=== PATIENT | female | born 1965 | race Caucasian/White ===

== ENCOUNTER 2018-03-19 22:41 | Inpatient (IN) | payer MEDICARE, MEDICAID ==
[~2018-03-19] VITALS: Ht 162.6 cm; Wt 59.3 kg
[2018-03-19 08:52] VITALS: BP 80/52; PULSE 72; RESP 17; TEMP 98.2; O2SAT 99
[~2018-03-19 22:41] MED LIST: DIAZ10TA PO; LISI-357 PO; LYRI50CA2 PO; MORP1INJ45 PO; MORP20SO2 PO; PROM1SUP12 PR
[2018-03-19 23:37] VITALS: BP 96/56; PULSE 60; RESP 16; TEMP 98.1; O2SAT 96
[2018-03-19] MEDS ORDERED: ONDANSETRON ODT 4 MG TAB PO ONE (23:45)
[2018-03-19] MEDS ORDERED: SODIUM CHLOR 0.9% 1000 ML INJ 1,000 ML IV ONE (23:45)
--- NOTE | 2018-03-20 00:07 | PD ---
HPI Chief Complaint: Psychiatric Symptoms Time Seen by Provider: 23:01 Travel History International Travel<30 days: No Contact w/Intl Traveler<30days: No Traveled to known affect area: No History of Present Illness HPI The patient is a 52 year old female who presents to the [facility] emergency department with a history of being brought in under a Ngo act to this facility. According to the Ngo act, the patient was unable to care for herself, therefore she was placed under a Ngo act. According to the nurse that accepted the report from the transport team, the patient was discharged from [facility] earlier today. I am informed that the patient has a history of HIV. She reports that she was diagnosed in 1996. She cannot recall if she has been on retroviral medications in the past. According to the transport team, the patient refused any further treatment at [facility]. The patient reports to me that she has intermittent nausea vomiting. She reports having chronic diarrhea 2 times per day over the last year. She denies having any known blood in her stool or black or tarry stools. The patient is drowsy on examination and unfortunately has difficulty staying awake to answer questions. The patient is a poor historian on exam and intermittently is cursing at me. On review of systems otherwise she does report having intermittent dry cough. She denies having any neck pain, chest pain, shortness of breath, vomiting, diarrhea, urinary symptoms, or neurologic symptoms. [facility] Past Medical History Narrative Medical The patient's past medical history is obtained from reviewing the electronic medical record as the patient is uncooperative with providing her history. The patient has a history of HIV reportedly since 1996, history of cerebrovascular accident, myocardial infarction, COPD. COPD: Yes Cerebrovascular Accident: Yes Diminished Hearing: No Diverticulitis: Yes Immune Disorder: Yes (HIV POSITIVE) Respiratory: Yes Myocardial Infarction: Yes ?: Not Menopausal: Yes Ectopic : Yes (RUPTURED) Past Surgical History Narrative Surgical The patient's past surgical history is significant for breast augmentation, liposuction, bronchoscopy with polyp removal, partial colon resection for diverticulitis, appendectomy, hysterectomy. Abdominal Surgery: Yes (COLON RESECTION/DIVERTICULITIS) Appendectomy: Yes Hysterectomy: Yes Other Surgery: Yes (BREAST AUGMENTATION, LIPOSUCTION, BRONCHOSCOPY/POLYPS REMOVED) Social History Alcohol Use: Yes Tobacco Use: Yes (2-2.5 PPD) Substance Use: No Allergies-Medications (Allergen,Severity, Reaction): Coded Allergies: penicillin G (Unverified Allergy, Severe, 06/13/17) Reported Meds & Prescriptions Reported Meds & Active Scripts Active Reported Lisinopril 5 mg (Lisinopril) 5 Mg Tab 1 Tab PO DAILY Lyrica (Pregabalin) 50 Mg Cap 50 Mg PO DAILY Diazepam 10 mg (Diazepam) 10 Mg Tab 1 Tab PO TID Morphine Sulfate 20 Mg/Ml Riri 20 Mg PO TID Morphine Sulfate Er (Morphine Sulfate) 15 Mg Tab 15 Mg PO TID Phenergan 25 mg supp (Promethazine HCl) 25 Mg Sup 25 Mg RI Q6HPRN FOR NAUSEA/VOMITING Review of Systems Except as stated in HPI: all other systems reviewed are Neg General / Constitutional: No: Fever Eyes: No: Visual changes HENT: No: Headaches Cardiovascular: No: Chest Pain or Discomfort Respiratory: Positive: Cough, No: Shortness of Breath Gastrointestinal: Positive: Nausea, Vomiting, Diarrhea, Indigestion, No: Abdominal Pain, Hematemesis, Hematochezia, Changes in Bowel Habits, Loss of Appetite Genitourinary: No: Dysuria Musculoskeletal: No: Pain Skin: No Rash Neurologic: Positive: Weakness (Generalized weakness), Change in Mentation, No : Focal Abnormalities, Slurred Speech, Sensory Disturbance Psychiatric: No: Depression Endocrine: No: Polydipsia Hematologic/Lymphatic: No: Easy Bruising Physical Exam Narrative General: The patient is a well-developed well-nourished female, drowsy on examination, frequently falling asleep. Head and Neck exam: Head is normocephalic atraumatic. Eyes: EOMI, pupils are equal round and reactive to light. Nose: Midline septum with pink mucous membranes Mouth: Dentition unremarkable. Dry mucous membranes. Posterior oropharynx mildly erythematous with thrush present the posterior oropharynx and cheeks. No tonsillar hypertrophy. Uvula midline. Airway patent. Neck: No palpable lymphadenopathy. No nuchal rigidity. No thyromegaly. Cardiovascular: Regular rate and rhythm without murmurs, gallops, or rubs. No pulse deficit to the extremities on simultaneous auscultation and palpation of her radial artery. Lungs: Clear to auscultation bilaterally. No wheezes, rhonchi, or rales. Abdomen: Soft, with reported tenderness on palpation of the midepigastric area, no other tenderness on palpation of the other quadrants of the abdomen. No guarding, rebound, or rigidity. Normal bowel sounds are audible. No tenderness on palpation of McBurney's point. Negative Abebe sign. Extremities: No clubbing, cyanosis, or edema. 2+ pulses in all 4 extremities. No calf tenderness on palpation. Back: No spinous process tenderness to palpation. No costovertebral angle tenderness to palpation. Neurologic Exam: Grossly nonfocal. Drowsy on examination. She reports that she did take Valium earlier today. She reports that she last drank 2 shots of Tequila 2 days ago. Patient frequently falls asleep during examination. The patient has no focal findings on examination with strength that is 5/5 in all 4 extremities, intact sensation over all dermatomes. No evidence of facial asymmetry. Skin Exam: No rash noted. Intact skin that is warm and dry. Data Data Last Documented VS Vital Signs Date Time Temp Pulse Resp B/P (MAP) Pulse Ox O2 Delivery O2 Flow Rate FiO2 03/19/18 23:37 98.1 60 16 96/56 (69) 96 Room Air Orders Orders Electrocardiogram (03/19/18 23:37) Complete Blood Count With Diff (03/19/18 23:37) Comprehensive Metabolic Panel (03/19/18 23:37) Creatine Kinase (Cpk) (03/19/18 23:37) Ckmb (Isoenzyme) Profile (03/19/18 23:37) Troponin I (03/19/18 23:37) B-Type Natriuretic Peptide (03/19/18 23:37) Prothrombin Time / Inr (Pt) (03/19/18 23:37) Act Partial Throm Time (Ptt) (03/19/18 23:37) Blood Culture (03/19/18 23:37) C-Reactive Protein (Crp) (03/19/18 23:37) Lipase (03/19/18 23:37) Urinalysis - C+S If Indicated (03/19/18 23:37) Magnesium (Mg) (03/19/18 23:37) Chest, Single Ap (03/19/18 23:37) Iv Access Insert/Monitor (03/19/18 23:37) Ecg Monitoring (03/19/18 23:37) Oximetry (03/19/18 23:37) Ed Urine Pregnancytest Poc (03/19/18 23:37) Lactic Acid Sepsis Protocol (03/19/18 23:37) Sodium Chlor 0.9% 1000 Ml Inj (Ns 1000 M (03/19/18 23:45) Ondansetron Odt (Zofran Odt) (03/19/18 23:45) Magnesium Sulfate 1 Gm Premix (Magnesium (03/20/18 00:15) CKMB (03/20/18 00:05) CKMB% (03/20/18 00:05) Sodium Chlorid 0.9% 500 Ml Inj (Ns 500 M (03/20/18 01:15) Nystatin Liq (Mycostatin Liq) (03/20/18 01:15) Levofloxacin 500 Mg Premix Inj (Levaquin (03/20/18 01:15) Admit To Inpatient (03/20/18 ) Vital Signs (Adult) Q4H (03/20/18 01:25) Activity Oob With Assistance (03/20/18 01:25) Superintendent Overhead Distribution / Telemetry .CONTINUOUS (03/20/18 01:25) Diet Heart Healthy (03/20/18 Breakfast) Sodium Chlor 0.9% 1000 Ml Inj (Ns 1000 M (03/20/18 01:25) Sodium Chloride 0.9% Flush (Ns Flush) (03/20/18 01:30) Sodium Chloride 0.9% Flush (Ns Flush) (03/20/18 09:00) Acetaminophen (Tylenol) (03/20/18 01:30) Basic Metabolic Panel (Bmp) (03/21/18 06:00) Complete Blood Count With Diff (03/21/18 06:00) Resp Oxygen Brian C Titrat 1-4 L (03/20/18 ) Enoxaparin Inj (Lovenox Inj) (03/20/18 09:00) Naloxone Inj (Narcan Inj) (03/20/18 01:30) Magnesium Hydroxide Liq (Milk Of Magnesi (03/20/18 01:30) Sennosides (Senokot) (03/20/18 01:30) Bisacodyl Supp (Dulcolax Supp) (03/20/18 01:30) Lactulose Liq (Lactulose Liq) (03/20/18 01:30) Inpatient Certification (03/20/18 ) Sodium Polysty Sulfate Liq (Kayexalate L (03/20/18 02:00) Insulin Human Regular Inj (Novolin R Inj (03/20/18 01:30) Dextrose 50% In Fly (Vial) Inj (D50w (Vi (03/20/18 01:30) Albuterol Concentrated Neb (Albuterol Co (03/20/18 01:30) Consult Psychiatry (03/20/18 ) Ondansetron Odt (Zofran Odt) (03/20/18 01:45) Labs Laboratory Tests Test 03/20/18 00:05 03/20/18 01:10 White Blood Count 9.7 TH/MM3 Red Blood Count 4.91 MIL/MM3 Hemoglobin 12.8 GM/DL Hematocrit 39.1 % Mean Corpuscular Volume 79.6 FL Mean Corpuscular Hemoglobin 26.1 PG Mean Corpuscular Hemoglobin Concent 32.8 % Red Cell Distribution Width 17.4 % Platelet Count 130 TH/MM3 Mean Platelet Volume 8.8 FL Neutrophils (%) (Auto) 65.4 % Lymphocytes (%) (Auto) 30.5 % Monocytes (%) (Auto) 3.8 % Eosinophils (%) (Auto) 0.0 % Basophils (%) (Auto) 0.3 % Neutrophils # (Auto) 6.3 TH/MM3 Lymphocytes # (Auto) 3.0 TH/MM3 Monocytes # (Auto) 0.4 TH/MM3 Eosinophils # (Auto) 0.0 TH/MM3 Basophils # (Auto) 0.0 TH/MM3 CBC Comment DIFF FINAL Differential Comment Blood Urea Nitrogen 41 MG/DL Creatinine 2.11 MG/DL Random Glucose 103 MG/DL Total Protein 7.7 GM/DL Albumin 2.4 GM/DL Calcium Level 8.1 MG/DL Magnesium Level 1.9 MG/DL Alkaline Phosphatase 134 U/L Aspartate Amino Transf (AST/SGOT) 133 U/L Alanine Aminotransferase (ALT/SGPT) 61 U/L Total Bilirubin 0.5 MG/DL Sodium Level 139 MEQ/L Potassium Level 5.4 MEQ/L Chloride Level 110 MEQ/L Carbon Dioxide Level 17.3 MEQ/L Anion Gap 12 MEQ/L Estimat Glomerular Filtration Rate 25 ML/MIN Lactic Acid Level 1.9 mmol/L Total Creatine Kinase 546 U/L Creatine Kinase MB 3.3 NG/ML Creatine Kinase MB % 0.6 % Troponin I 0.36 NG/ML C-Reactive Protein 7.90 MG/DL B-Type Natriuretic Peptide 207 PG/ML Lipase 99 U/L Prothrombin Time 10.6 SEC Prothromb Time International Ratio 1.0 RATIO Activated Partial Thromboplast Time 21.0 SEC MDM Medical Decision Making Medical Screen Exam Complete: Yes Emergency Medical Condition: Yes Medical Record Reviewed: Yes Differential Diagnosis Intracranial abnormality, versus encephalopathy, versus urinary tract infection , versus alcohol intoxication, versus other substance intoxication Narrative Course During the course of the patient's emergency department visit, the patient's history, examination, and differential diagnosis were reviewed with the patient. The patient was placed on a acetylene torch operator with oximetry and frequent blood pressure monitoring. The patient had IV access obtained and blood work sent for analysis. The patient had an EKG done on arrival. Patient's EKG shows a sinus rhythm with a heart rate of 62, QRS duration is 82 ms, QTC is prolonged at 571 ms. EKG is noted to have nonspecific ST segment deviation, T-wave inversions in leads II, 3, aVF, V2, V3, V4, V5, V6. Due to the QTC prolongation , the patient was started on magnesium 1 g IV. The patient's Ngo act was reviewed. The patient was initially provided normal saline IV fluids. The patient was given nystatin for thrush. The patient's laboratory studies were reviewed and remarkable for a white count of 9.7, hemoglobin 12.8, platelets 130 with a normal differential, CMP is remarkable for potassium of 5.4, CO2 17.3, BUN 41, creatinine 2.11 which is compared to her prior BUN and creatinine in April 2016 at 15 and 1.05 respectively. AST 133, ALT 61, alk phos 134, CPK is elevated at 546, however she has a normal MB percent, C-reactive protein is 0.36, C-reactive protein 7.90 , BNP 207, albumin 2.4. The patient's elevated troponin level could be related to her renal insufficiency, as the patient denies having any chest pain. The patient was given aspirin 324 mg p.o. 1. PT 10.6, PTT 21, urinalysis shows 30 protein moderate occult blood trace leukocyte esterase 5 RBCs, catheterized specimen, culture not indicated. Acetaminophen is less than 2, alcohol level less than 3, salicylate 3.3 Radiology studies were reviewed and remarkable for Last Impressions Chest X-Ray 03/19/18 1526 Signed Impressions: Service Date/Time: Tuesday, March 20, 2018 00:31 - CONCLUSION: No acute disease. There is no evidence of pneumonia. Feliberto Spears MD CT scan of the brain shows no acute abnormality. Given the patient's cough, congestion, the patient was given Levaquin 500 mg IV 1. The patient will be admitted to the hospitalist service for altered mentation with a psychiatric consultation related to her Ngo act. The patient's results were discussed with the patient, including the plan of care. I explained that further testing and/ or monitoring is indicated based on the patient's history, examination, and/ or laboratory findings. Therefore, I recommended admission for additional evaluation. The patient expressed understanding and was agreeable with this plan. The patient was admitted to the hospital in guarded condition and sent to a bed under the care of the [place] [facility] service. Physician Communication Physician Communication The patient's case including history, pertinent physical examination findings, and laboratory studies were discussed with Dr. Zuniga. It was agreed that the patient would be admitted to the [place] [facility] service. Diagnosis Primary Impression: Altered mental status Qualified Codes: R41.0 - Disorientation, unspecified Admitting Information Admitting Physician Requests: Admit Michelle Cui MD March 20, 2018 00:07
[2018-03-20] MEDS ORDERED: MAGNESIUM SULFATE 1 GM PREMIX 100 ML IV ONE (00:15)
[2018-03-20 00:21] LABS: AUTOMATED NEUTROPHIL # 6.3 TH/MM3 (1.8-7.7); BASOPHIL % 0.3 % (0.0-2.0); HEMATOCRIT 39.1 % (35.0-46.0); HEMOGLOBIN 12.8 GM/DL (11.6-15.3); LYMPH % 30.5 % (9.0-44.0); MEAN CELL VOLUME 79.6 FL (80.0-100.0); MEAN CORPUSCULAR HEMOGLOBIN 26.1 PG (27.0-34.0); MEAN CORPUSCULAR HGB CONC 32.8 % (32.0-36.0); MEAN PLATELET VOLUME 8.8 FL (7.0-11.0); MONO % 3.8 % (0.0-8.0); MONOCYTE # 0.4 TH/MM3 (0-0.9); NEUT % 65.4 % (16.0-70.0); PLATELET COUNT 130 TH/MM3 (150-450); RED BLOOD COUNT 4.91 MIL/MM3 (4.00-5.30); RED CELL DISTRIBUTION WIDTH 17.4 % (11.6-17.2); WHITE BLOOD COUNT 9.7 TH/MM3 (4.0-11.0)
--- NOTE | 2018-03-20 00:43 | RADRPT ---
EXAM DATE/TIME: 03/20/2018 00:31 [place] COMPARISON: CHEST SINGLE AP, May 06, 2016, 19:17. INDICATIONS : Cough. AMS. MEDICAL HISTORY : None. SURGICAL HISTORY : None. ENCOUNTER: Initial ACUITY: 1 day PAIN SCORE: Non-responsive. LOCATION: Bilateral chest FINDINGS: A single view of the chest demonstrates the lungs to be symmetrically aerated without evidence of mas s, infiltrate or effusion. The cardiomediastinal contours are unremarkable. Osseous structures are intact. CONCLUSION: No acute disease. There is no evidence of pneumonia. Feliberto Spears MD on March 20, 2018 at 0:42 Board Certified Radiologist. This report was verified electronically.
[2018-03-20 00:47] LABS: ALT (GPT) 61 U/L (10-53)
[2018-03-20 00:49] LABS: ALBUMIN 2.4 GM/DL (3.4-5.0); AST (GOT) 133 U/L (15-37); BICARBONATE 17.3 MEQ/L (21.0-32.0); BLOOD UREA NITROGEN 41 MG/DL (7-18); CALCIUM 8.1 MG/DL (8.5-10.1); CHLORIDE 110 MEQ/L (98-107); CREATININE 2.11 MG/DL (0.50-1.00); GLOMERULAR FILTRATION RATE 25 ML/MIN (>89); GLUCOSE,RANDOM 103 MG/DL (74-106); MAGNESIUM 1.9 MG/DL (1.5-2.5); SODIUM (NA) 139 MEQ/L (136-145)
[2018-03-20 00:50] LABS: ALKALINE PHOSPHATASE 134 U/L (45-117); TOTAL BILIRUBIN ADULT 0.5 MG/DL (0.2-1.0); TOTAL PROTEIN 7.7 GM/DL (6.4-8.2); TROPONIN I 0.36 NG/ML (0.02-0.05)
[2018-03-20] MEDS ORDERED: NYSTATIN SUSP 500,000 U/5 ML CUP SWISH-SWAL ONE (01:15)
[2018-03-20] MEDS ORDERED: LEVOFLOXACIN 500 MG PREMIX INJ 100 ML IV ONE (01:15)
[2018-03-20] MEDS ORDERED: SODIUM CHLORID 0.9% 500 ML INJ 500 ML IV ONE (01:15)
[2018-03-20] MEDS ORDERED: RESP: ALBUTEROL CONC 2.5 MG/0.5 ML NEB INH ONE (01:30)
[2018-03-20] MEDS ORDERED: MAGNESIUM HYDROXIDE SUSP 30 ML CUP PO PRN (01:30)
[2018-03-20] MEDS ORDERED: SENNOSIDES 8.6 MG TAB PO PRN (01:30)
[2018-03-20] MEDS ORDERED: BISACODYL 10 MG SUPP RECTAL PRN (01:30)
[2018-03-20] MEDS ORDERED: DEXTROSE 50% IN WATER 50 ML VIAL(D50) IV PUSH ONE (01:30)
[2018-03-20] MEDS ORDERED: NALOXONE HCL 0.4 MG/ML AMP IV PUSH PRN (01:30)
[2018-03-20] MEDS ORDERED: ACETAMINOPHEN 325 MG TAB PO PRN (01:30)
[2018-03-20] MEDS ORDERED: LACTULOSE SYRUP 20 GM/30 ML CUP PO PRN (01:30)
[2018-03-20] MEDS ORDERED: SODIUM CHLORIDE 0.9% FLUSH 10 ML FLUSH IV FLUSH PRN (01:30)
[2018-03-20] MEDS ORDERED: INSULIN HUMAN REGULAR 1,000 UNITS/10 ML VIAL IV PUSH ONE (01:30)
[2018-03-20 01:38] LABS: PROTHROMBIN TIME - PATIENT 10.6 SEC (9.8-11.6)
[2018-03-20] MEDS ORDERED: ONDANSETRON ODT 4 MG TAB PO PRN (01:45)
[2018-03-20] MEDS: SODIUM CHLOR 0.9% 1000 ML INJ 1,000 ML IV SCH ×2 (02:05→08:04)
[2018-03-20] MEDS: SODIUM POLYSTYRENE SULFONATE SUSP 15 GM/60 ML CUP PO SCH ×2 (02:06→08:05)
[2018-03-20] MEDS ORDERED: ASPIRIN 81 MG CHEW TAB CHEW ONE (02:15)
[2018-03-20 02:33] LABS: ACETAMINOPHEN LESS THAN 2.0 MCG/ML (10.0-30.0)
--- NOTE | 2018-03-20 02:53 | HHI.HP ---
[facility] No Primary Care Physician Admission Diagnosis AMS, Ngo Act Diagnoses: Chief Complaint: Ngo act Travel History International Travel<30 Days: No Contact w/Intl Traveler <30 Da: No Traveled to Known Affected Are: No History of Present Illness 52-year-old female with a medical history of HIV, hypertension (not on any medication) was brought to the ED under a Ngo act because patient was unable to care for herself. Upon examination patient is oriented 2-3 and is very agitated and defensive. Patient was apparently discharged from [facility] earlier today and when the slip feeder brought her to her house they realize the condition of her house and brought her into the ED due to unable to care for herself. Patient states she was admitted to [facility] last week for taking too much temazepam. Patient states at this time she was fighting with her significant other. Patient denies any suicidal ideation, patient states she does not have a plan and does not want to hurt herself. She states she does not take HIV medication because it is her right she has a choice. Patient is currently in 4 point restraints and is very agitated. She denies any chest pain, shortness breath, fever or chills. Review of Systems Except as stated in HPI: all other systems reviewed are Neg Past Family Social History Past Medical History HIV COPD Hypertension Past Surgical History Breast augmentation Colon resection Appendectomy Hysterectomy Reported Medications Reported Meds & Active Scripts Active Reported Lisinopril 5 mg (Lisinopril) 5 Mg Tab 1 Tab PO DAILY Lyrica (Pregabalin) 50 Mg Cap 50 Mg PO DAILY Diazepam 10 mg (Diazepam) 10 Mg Tab 1 Tab PO TID Morphine Sulfate 20 Mg/Ml Riri 20 Mg PO TID Morphine Sulfate Er (Morphine Sulfate) 15 Mg Tab 15 Mg PO TID Phenergan 25 mg supp (Promethazine HCl) 25 Mg Sup 25 Mg MI Q6HPRN FOR NAUSEA/VOMITING Allergies: Coded Allergies: penicillin G (Unverified Allergy, Severe, 06/13/17) Active Ordered Medications Current Medications Medications (Trade) Dose Ordered Sig/Andrey Route Start Time Stop Time Status Last Admin Sodium Chloride 1,000 ml @ 150 mls/hr Q6H40M IV 03/20/18 01:25 03/20/18 02:05 (NS Flush) 2 ml UNSCH PRN IV FLUSH 03/20/18 01:30 (NS Flush) 2 ml BID IV FLUSH 03/20/18 09:00 (Tylenol) 650 mg Q4H PRN PO 03/20/18 01:30 (Zofran Odt) 4 mg Q6H PRN PO 03/20/18 01:45 (Lovenox Inj) 30 mg Q24H SQ 03/20/18 09:00 (Narcan Inj) 0.4 mg UNSCH PRN IV PUSH 03/20/18 01:30 (Milk Of Magnesia Liq) 30 ml Q12H PRN PO 03/20/18 01:30 (Senokot) 17.2 mg Q12H PRN PO 03/20/18 01:30 (Dulcolax Supp) 10 mg DAILY PRN RECTAL 03/20/18 01:30 (Lactulose Liq) 30 ml DAILY PRN PO 03/20/18 01:30 (Kayexalate Liq) 15 gm QID PO 03/20/18 02:00 03/20/18 18:01 03/20/18 02:06 Family History Patient denies any family history no heart disease or Social History Tobacco use: 2PPD Alcohol use: Occasionally Physical Exam Vital Signs Vital Signs Date Time Temp Pulse Resp B/P (MAP) Pulse Ox O2 Delivery O2 Flow Rate FiO2 03/19/18 23:37 98.1 60 16 96/56 (69) 96 Room Air Physical Exam GENERAL: This is a well-nourished, well-developed patient, who is in restraints and agitated SKIN: No rashes, ecchymoses or lesions. Cool and dry. HEAD: Atraumatic. Normocephalic. EYES: Pupils equal round and reactive. Extraocular motions intact. CARDIOVASCULAR: Regular rate and rhythm without murmurs, gallops, or rubs. RESPIRATORY: Clear to auscultation. Breath sounds equal bilaterally. No wheezes , rales, or rhonchi. GASTROINTESTINAL: Abdomen soft, non-tender, nondistended. MUSCULOSKELETAL: Extremities without clubbing, cyanosis, or edema. No calf tenderness. NEUROLOGICAL: Awake and alert. Motor and sensory grossly within normal limits. Normal speech. Laboratory Laboratory Tests Test 03/20/18 00:05 03/20/18 01:10 03/20/18 01:40 White Blood Count 9.7 Red Blood Count 4.91 Hemoglobin 12.8 Hematocrit 39.1 Mean Corpuscular Volume 79.6 Mean Corpuscular Hemoglobin 26.1 Mean Corpuscular Hemoglobin Concent 32.8 Red Cell Distribution Width 17.4 Platelet Count 130 Mean Platelet Volume 8.8 Neutrophils (%) (Auto) 65.4 Lymphocytes (%) (Auto) 30.5 Monocytes (%) (Auto) 3.8 Eosinophils (%) (Auto) 0.0 Basophils (%) (Auto) 0.3 Neutrophils # (Auto) 6.3 Lymphocytes # (Auto) 3.0 Monocytes # (Auto) 0.4 Eosinophils # (Auto) 0.0 Basophils # (Auto) 0.0 CBC Comment DIFF FINAL Differential Comment Blood Urea Nitrogen 41 Creatinine 2.11 Random Glucose 103 Total Protein 7.7 Albumin 2.4 Calcium Level 8.1 Magnesium Level 1.9 Alkaline Phosphatase 134 Aspartate Amino Transf (AST/SGOT) 133 Alanine Aminotransferase (ALT/SGPT) 61 Total Bilirubin 0.5 Sodium Level 139 Potassium Level 5.4 Chloride Level 110 Carbon Dioxide Level 17.3 Anion Gap 12 Estimat Glomerular Filtration Rate 25 Lactic Acid Level 1.9 Total Creatine Kinase 546 Creatine Kinase MB 3.3 Creatine Kinase MB % 0.6 Troponin I 0.36 C-Reactive Protein 7.90 B-Type Natriuretic Peptide 207 Lipase 99 Prothrombin Time 10.6 Prothromb Time International Ratio 1.0 Activated Partial Thromboplast Time 21.0 Salicylates Level 3.3 Acetaminophen Level LESS THAN 2.0 Ethyl Alcohol Level LESS THAN 3 Date/Time Source Procedure Growth Status 03/20/18 00:05 Blood Peripheral Aerobic Blood Culture Pending Received 03/20/18 00:05 Blood Peripheral Anaerobic Blood Culture Pending Received Result Diagram: 03/20/18 0005 03/20/18 0005 Imaging Last Impressions Head CT 03/20/18 0130 Signed Impressions: Service Date/Time: Tuesday, March 20, 2018 02:48 - CONCLUSION: Unremarkable noncontrast head CT. Feliberto Spears MD Chest X-Ray 03/19/18 2038 Signed Impressions: Service Date/Time: Tuesday, March 20, 2018 00:31 - CONCLUSION: No acute disease. There is no evidence of pneumonia. MD Addie Avila VTE Risk Assessment Caprini VTE Risk Assessment: No/Low Risk (score <= 1) Caprini Risk Assessment Model Point Value = 1 Point Value = 2 Point Value = 3 Point Value = 5 Age 41-60 Minor surgery BMI > 25 kg/m2 Swollen legs Varicose veins or History of unexplained or recurrent spontaneous Oral contraceptives or hormone replacement Sepsis (< 1 month) Serious lung disease, including pneumonia (< 1 month) Abnormal pulmonary function Acute myocardial infarction Congestive heart failure (< 1 month) History of inflammatory bowel disease Medical patient at bed rest Age 61-74 Arthroscopic surgery Major open surgery (> 45 min) Laparoscopic surgery (> 45 min) Malignancy Confined to bed (> 72 hours) Immobilizing plaster cast Central venous access Age >= 75 History of VTE Family history of VTE Factor V Leiden Prothrombin [id number] Lupus anticoagulant Anticardiolipin antibodies Elevated serum homocysteine Heparin-induced thrombocytopenia Other congenital or acquired thrombophilia Stroke (< 1 month) Elective arthroplasty Hip, pelvis, or leg fracture Acute spinal cord injury (< 1 month) Prophylaxis Regimen Total Risk Factor Score Risk Level Prophylaxis Regimen 0-1 Low Early ambulation 2 Moderate Order ONE of the following: *Sequential Compression Device (SCD) *Heparin 5000 units SQ BID 3-4 Higher Order ONE of the following medications: *Heparin 5000 units SQ TID *Enoxaparin/Lovenox 40 mg SQ daily (WT < 150 kg, CrCl > 30 mL/min) *Enoxaparin/Lovenox 30 mg SQ daily (WT < 150 kg, CrCl > 10-29 mL/min) *Enoxaparin/Lovenox 30 mg SQ BID (WT < 150 kg, CrCl > 30 mL/min) AND/OR *Sequential Compression Device (SCD) 5 or more Highest Order ONE of the following medications: *Heparin 5000 units SQ TID (Preferred with Epidurals) *Enoxaparin/Lovenox 40 mg SQ daily (WT < 150 kg, CrCl > 30 mL/min) *Enoxaparin/Lovenox 30 mg SQ daily (WT < 150 kg, CrCl > 10-29 mL/min) *Enoxaparin/Lovenox 30 mg SQ BID (WT < 150 kg, CrCl > 30 mL/min) AND *Sequential Compression Device (SCD) Assessment and Plan Assessment and Plan 52-year-old female with a medical history of HIV, hypertension (not on any medication) was brought to the ED under a Ngo act because patient was unable to care for herself. Failure to care for herself CT brain reviewed and is unremarkable -Consult case management for recommendations -Consult psychiatry recommendations -Patient under a ngo act Thrush, acute -Nystatin swish and swallow 4 times daily Hypertension, chronic, controlled -Due to patient's agitation med rec is unable to be completed, resume when completed. Hyperkalemia, potassium 5.4 EKG reviewed and shows SR -D50, calcium and insulin given -BMP in am GENEVA, creatine 2.1, baseline 1.0, likely due to dehydration -IVF for hydration, trend creatine -Renal ultrasound if no improvement -BMP at noon -Avoid nephrotoxins Elevated troponin, likely secondary to GENEVA, r/o ACS Troponin .36 -Serial troponin and EKGs -Monitor telemetry DNR: frankie Quintanilla Discussed Condition With Patient and RN Physician Certification 2 Midnight Certification Type: Admission for Inpatient Services Order for Inpatient Services The services are ordered in accordance with Medicare regulations or non- Medicare payer requirements, as applicable. In the case of services not specified as inpatient-only, they are appropriately provided as inpatient services in accordance with the 2-midnight benchmark. Estimated LOS (days): 3 days is the estimated time the patient will need to remain in the hospital, assuming treatment plan goals are met and no additional complications. Post-Hospital Plan: Not yet determined Veronika Elkins March 20, 2018 02:53
--- NOTE | 2018-03-20 03:26 | RADRPT ---
EXAM DATE/TIME: 03/20/2018 02:48 [place] COMPARISON: No previous studies available for comparison. INDICATIONS : Altered mental status. RADIATION DOSE: 56.35 CTDIvol (mGy) MEDICAL HISTORY : Cardiovascular disease. Chronic obstructive pulmonary disease. Diverticulitis.HIV SURGICAL HISTORY : Appendectomy. Hysterectomy.Colon resection. ENCOUNTER: Initial ACUITY: 1 day PAIN SCALE: 0/10 LOCATION: cranial TECHNIQUE: Multiple contiguous axial images were obtained of the head. Using automated exposure control and adj ustment of the mA and/or kV according to patient size, radiation dose was kept as low as reasonably a chievable to obtain optimal diagnostic quality images. DICOM format image data is available electro nically for review and comparison. FINDINGS: CEREBRUM: The ventricles are normal for age. No evidence of midline shift, mass lesion, hemorrhage or acute in farction. No extra-axial fluid collections are seen. POSTERIOR FOSSA: The cerebellum and brainstem are intact. The 4th ventricle is midline. The cerebellopontine angle i s unremarkable. EXTRACRANIAL: The visualized portion of the orbits is intact. SKULL: The calvaria is intact. No evidence of skull fracture. CONCLUSION: Unremarkable noncontrast head CT. Feliberto Spears MD on March 20, 2018 at 3:25 Board Certified Radiologist. This report was verified electronically.
[2018-03-20 04:00] VITALS: BP 73/43; PULSE 76; RESP 18; TEMP 97.8; O2SAT 97
[2018-03-20 05:30] VITALS: BP 90/49; O2SAT 98
[2018-03-20] MEDS ORDERED: NYSTATIN SUSP 500,000 U/5 ML CUP SWISH-SWAL SCH (09:00)
[2018-03-20] MEDS ORDERED: SODIUM CHLORIDE 0.9% FLUSH 10 ML FLUSH IV FLUSH SCH (09:00)
[2018-03-20] MEDS ORDERED: ENOXAPARIN SODIUM 30 MG/0.3 ML SYRINGE SQ SCH (09:00)
[2018-03-20 12:00] VITALS: BP 101/42; PULSE 70; RESP 18; TEMP 97.3; O2SAT 99
--- NOTE | 2018-03-20 12:12 | HHI.PR ---
Subjective Remarks Follow-up for Ngo act, GENEVA, HIV, elevated troponin. Patient was seen by psychiatry earlier this morning, Jeni vo was lifted. Patient does not want to stay in the hospital. Had a long discussion with patient regarding her diagnosis of GENEVA, elevated troponin, hyperkalemia. She is AAO 4. She states nothing against the hospital, but her time has come and she is done fighting. She denies any specific suicidal ideations. She states she just wants to go home and does not want to be in the hospital. Informed her of her risks of further dehydration, arrhythmia, and , patient still chooses to go home. She has capacity to make her own medical decisions. Objective Vitals Vital Signs Date Time Temp Pulse Resp B/P (MAP) Pulse Ox O2 Delivery O2 Flow Rate FiO2 03/20/18 05:30 90/49 (63) 98 03/20/18 04:00 97.8 76 18 73/43 (53) 97 03/20/18 03:24 03/19/18 23:37 98.1 60 16 96/56 (69) 96 Room Air I/O 03/19/18 03/19/18 03/19/18 03/20/18 03/20/18 03/20/18 06:59 14:59 22:59 06:59 14:59 22:59 Intake Total 1940 ml Balance 1940 ml Intake Oral 240 ml IV Total 1700 ml # Voids 0 Result Diagram: 03/20/18 0005 03/20/18 0005 Imaging Last Impressions Head CT 03/20/18 0130 Signed Impressions: Service Date/Time: Tuesday, March 20, 2018 02:48 - CONCLUSION: Unremarkable noncontrast head CT. Feliberto Spears MD Chest X-Ray 03/19/18 7848 Signed Impressions: Service Date/Time: Tuesday, March 20, 2018 00:31 - CONCLUSION: No acute disease. There is no evidence of pneumonia. Feliberto Spears MD Objective Remarks GENERAL: Thin female patient in NAD. Sitting in bedside chair, dressed, waiting to leave the hospital. SKIN: Warm and dry. No rash. HEENT: Normocephalic. Atraumatic. Pupils equal and round. Mucous membranes pink and moist. NECK: Supple. Trachea midline. CARDIOVASCULAR: Regular rate and rhythm. No murmur appreciated. RESPIRATORY: No accessory muscle use. Clear to auscultation. Breath sounds equal bilaterally. GASTROINTESTINAL: Abdomen soft, non-tender, nondistended. Normoactive bowel sounds x4. MUSCULOSKELETAL: No obvious deformities. Extremities without clubbing, cyanosis , or edema. NEUROLOGICAL: Awake and alert. No obvious cranial nerve deficits. Motor grossly within normal limits. Moving all extremities spontaneously. Normal speech. PSYCHIATRIC: Appropriate mood and affect; insight and judgment normal. Medications and IVs Current Medications Medications (Trade) Dose Ordered Sig/Andrey Route Start Time Stop Time Status Last Admin Sodium Chloride 1,000 ml @ 150 mls/hr Q6H40M IV 03/20/18 01:25 03/20/18 08:04 (NS Flush) 2 ml UNSCH PRN IV FLUSH 03/20/18 01:30 (NS Flush) 2 ml BID IV FLUSH 03/20/18 09:00 (Tylenol) 650 mg Q4H PRN PO 03/20/18 01:30 (Zofran Odt) 4 mg Q6H PRN PO 03/20/18 01:45 (Lovenox Inj) 30 mg Q24H SQ 03/20/18 09:00 03/20/18 08:08 (Narcan Inj) 0.4 mg UNSCH PRN IV PUSH 03/20/18 01:30 (Milk Of Magnesia Liq) 30 ml Q12H PRN PO 03/20/18 01:30 (Senokot) 17.2 mg Q12H PRN PO 03/20/18 01:30 (Dulcolax Supp) 10 mg DAILY PRN RECTAL 03/20/18 01:30 (Lactulose Liq) 30 ml DAILY PRN PO 03/20/18 01:30 (Kayexalate Liq) 15 gm QID PO 03/20/18 02:00 03/20/18 18:01 03/20/18 08:05 (Mycostatin Liq) 5 ml QID SWISH-SWAL 03/20/18 09:00 03/20/18 08:05 A/P Assessment and Plan 52-year-old female with a medical history of HIV, hypertension (not on any medication) was brought to the ED under a Ngo act because patient was unable to care for herself. Failure to care for self: Brought in under Ngo Act. -CT brain reviewed and is unremarkable -Consult case management for recommendations -Consult psychiatry, Saperion Act lifted -Patient AAOx4 and has capacity to make her own medical decisions -Patient leaving AGAINST MEDICAL ADVICE Thrush, acute -Nystatin swish and swallow 4 times daily Hypertension, chronic, controlled -Complete med rec and resume home medications Hyperkalemia, potassium 5.4 -EKG reviewed and shows NSR -D50, calcium and insulin given -BMP pending, patient refusing any further labs GENEVA, creatine 2.1, baseline 1.0, likely due to dehydration -Give IVF for hydration, trend creatine -Renal ultrasound if no improvement -BMP pending, however patient refuses -Avoid nephrotoxins Mild Rhabdomyolysis: CPK elevated at 546. Suspect dehydration. -UA and UDS ordered -give IVF -trend CPK and BMP Elevated troponin, likely secondary to rhabdo/GENEVA, r/o ACS -Troponin 0.36 --> 0.19 however CKMB % wnl -Serial troponin and EKGs -Monitor on telemetry DNR: SCDs, frankie Discharge Planning Patient leaving AGAINST MEDICAL ADVICE and refusing any further work up. This patient has the capacity to refuse care and understands the risks of leaving, including permanent disability and/or , and has had an opportunity to ask questions about her condition. The patient has been informed that she may return for care at any time, and follow up has been arranged/advised. Ledy Ruiz PA-C March 20, 2018 12:12
--- NOTE | 2018-03-20 12:20 | PD.PSY.CON ---
Provisional Diagnosis Admission Date March 20, 2018 at 01:28 History of Present Illness Service Psychiatry Consult Requested By Medical team Reason for Consult Overdose Primary Care Physician No Primary Care Physician HPI The patient is a 52-year-old woman, bilingual, domiciled alone in [place], single, unemployed, supported by [facility], with psychiatric history of depression, anxiety, alcohol use disorder, 1 previous psychiatric hospitalizations many years ago, one previous suicide attempt, the patient reports that she is in diazepam 10 mg 4 times per day prescribed by PCP, with a medical history of HIV, hypertension was brought to the ED under a Ngo act because patient was unable to care for herself. Upon examination patient is oriented 2-3 and is very agitated and defensive. Patient was apparently discharged from [facility] earlier today and when the kicking machine operator brought her to her house they realize the condition of her house and brought her into the ED due to unable to care for herself. Patient states she was admitted to [facility] last week for taking too much temazepam. Patient states at this time she was fighting with her significant other. Patient denies any suicidal ideation, patient states she does not have a plan and does not want to hurt herself. She states she does not take HIV medication because it is her right she has a choice. Patient is currently in 4 point restraints and is very agitated. She denies any chest pain, shortness breath, fever or chills. Patient was placed on the Ngo act for suspected overdose. Consulted to psychiatry to address a potential overdose. On psychiatric evaluation the patient is calm, cooperative at the beginning she was irritable oppositional. Patient asked why was she consulted to psychiatry and Jeni acted "if I am the happiest person in this world, a Mandaeism person and I was never will kill myself". She reports that she had an argument with her girlfriend by phone, she took her prescribed diazepam, she usually takes 10 mg, "but due to the argument I took 20 minute and then I drank some alcohol with the intention to go to sleep". Patient denies suicidal intentions. At this moment the patient is very irritable, verbally oppositional, but she is insists that she is happy, denies depressive symptoms, denies hopelessness, denies hopelessness, denies worthlessness, she denies suicidal enemas ideation, she denies visual and auditory hallucinations. She is logical, coherent and relevant. Oriented 3. No fluctuation of consciousness, no gross cognitive impairment is present. Patient reports occasional use of alcohol. Denies the use of illegal drugs. Review of Systems Constitutional: DENIES: Diaphoretic episodes, Fatigue, Fever, Weight gain, Weight loss, Chills, Dizziness, Change in appetite, Night Sweats Endocrine: DENIES: Abnorml menstrual pattern, Heat/cold intolerance, Polydipsia , Polyuria, Polyphagia Eyes: DENIES: Blurred vision, Diplopia, Eye inflammation, Eye pain, Vision loss , Photosensitivity, Double Vision Ears, nose, mouth, throat: DENIES: Tinnitus, Hearing loss, Vertigo, Nasal discharge, Oral lesions, Throat pain, Hoarseness, Ear Pain, Running Nose, Epistaxis, Sinus Pain, Toothache, Odynophagia Respiratory: DENIES: Apneas, Cough, Snoring, Wheezing, Hemoptysis, Sputum production, Shortness of breath Cardiovascular: DENIES: Chest pain, Palpitations, Syncope, Dyspnea on Exertion , PND, Lower Extremity Edema, Orthopnea, Claudication Gastrointestinal: DENIES: Abdominal pain, Black stools, Bloody stools, Constipation, Diarrhea, Nausea, Vomiting, Difficulty Swallowing, Anorexia Genitourinary: DENIES: Abnormal vaginal bleeding, Dysmenorrhea, Dyspareunia, Sexual dysfunction, Urinary frequency, Urinary incontinence, Urgency, Hematuria , Dysuria, Nocturia, Vaginal discharge Musculoskeletal: DENIES: Joint pain, Muscle aches, Stiffness, Joint Swelling, Back pain, Neck pain Integumentary: DENIES: Abnormal pigmentation, Pruritus, Rash, Nail changes, Breast masses, Breast skin changes, Nipple discharge Hematologic/lymphatic: DENIES: Bruising, Lymphadenopathy Immunologic/allergic: DENIES: Eczema, Urticaria Neurologic: DENIES: Abnormal gait, Headache, Localized weakness, Paresthesias, Seizures, Speech Problems, Tremor, Poor Balance Psychiatric: DENIES: Anxiety, Confusion, Mood changes, Depression, Hallucinations, Agitation, Suicidal Ideation, Homicidal Ideation, Delusions Past Family Social History Coded Allergies: penicillin G (Unverified Allergy, Severe, 06/13/17) Reported Medications Lisinopril 5 mg (Lisinopril 5 mg) 5 Mg Tab, 1 TAB PO DAILY, TAB 05/06/16 Pregabalin (Lyrica) 50 Mg Cap, 50 MG PO DAILY, CAP 05/06/16 Diazepam 10 mg (Diazepam 10 mg) 10 Mg Tab, 1 TAB PO TID for Anxiety, TAB 05/06/16 Morphine Sulfate (Morphine Sulfate) 20 Mg/Ml Delgado, 20 MG PO TID for Pain, DELGADO 05/06/16 Morphine Sulfate-Sodium Chlori (Morphine Sulfate/Sodium C 50-0.9 mg/50Ml-%) 15 Mg Tab, 15 MG PO TID, TAB 05/06/16 Promethazine 25 mg supp (Phenergan 25 mg supp) 25 Mg Sup, 25 MG NC Q6HPRN, #5 FOR NAUSEA/VOMITING 01/14/10 Current Medications Medications (Trade) Dose Ordered Sig/Andrey Route Start Time Stop Time Status Last Admin Sodium Chloride 1,000 ml @ 150 mls/hr Q6H40M IV 03/20/18 01:25 03/20/18 08:04 (NS Flush) 2 ml UNSCH PRN IV FLUSH 03/20/18 01:30 (NS Flush) 2 ml BID IV FLUSH 03/20/18 09:00 (Tylenol) 650 mg Q4H PRN PO 03/20/18 01:30 (Zofran Odt) 4 mg Q6H PRN PO 03/20/18 01:45 (Lovenox Inj) 30 mg Q24H SQ 03/20/18 09:00 03/20/18 08:08 (Narcan Inj) 0.4 mg UNSCH PRN IV PUSH 03/20/18 01:30 (Milk Of Magnesia Liq) 30 ml Q12H PRN PO 03/20/18 01:30 (Senokot) 17.2 mg Q12H PRN PO 03/20/18 01:30 (Dulcolax Supp) 10 mg DAILY PRN RECTAL 03/20/18 01:30 (Lactulose Liq) 30 ml DAILY PRN PO 03/20/18 01:30 (Kayexalate Liq) 15 gm QID PO 03/20/18 02:00 03/20/18 18:01 03/20/18 08:05 (Mycostatin Liq) 5 ml QID SWISH-SWAL 03/20/18 09:00 03/20/18 08:05 Family Psych History No family psychiatric Social History Patient was born and raised in [place], she lives in [facility], she has a girlfriend, she has 2 kids, her lutheran is Aida, her highest level of education is some college Patient's Strengths (min. 2) Verbal communication Physical Exam No tremors, no EPS, no withdrawal symptoms, no psychomotor agitation or retardation, no gait disturbance Vital Signs Vital Signs Date Time Temp Pulse Resp B/P (MAP) Pulse Ox O2 Delivery O2 Flow Rate FiO2 03/20/18 05:30 90/49 (63) 98 03/20/18 04:00 97.8 76 18 03/19/18 23:37 Room Air I/O 03/20/18 03/20/18 03/21/18 08:00 16:00 00:00 Intake Total 1940 ml Balance 1940 ml Lab Results Test 03/20/18 00:05 03/20/18 01:10 03/20/18 01:40 03/20/18 08:24 White Blood Count 9.7 TH/MM3 Red Blood Count 4.91 MIL/MM3 Hemoglobin 12.8 GM/DL Hematocrit 39.1 % Mean Corpuscular Volume 79.6 FL Mean Corpuscular Hemoglobin 26.1 PG Mean Corpuscular Hemoglobin Concent 32.8 % Red Cell Distribution Width 17.4 % Platelet Count 130 TH/MM3 Mean Platelet Volume 8.8 FL Neutrophils (%) (Auto) 65.4 % Lymphocytes (%) (Auto) 30.5 % Monocytes (%) (Auto) 3.8 % Eosinophils (%) (Auto) 0.0 % Basophils (%) (Auto) 0.3 % Neutrophils # (Auto) 6.3 TH/MM3 Lymphocytes # (Auto) 3.0 TH/MM3 Monocytes # (Auto) 0.4 TH/MM3 Eosinophils # (Auto) 0.0 TH/MM3 Basophils # (Auto) 0.0 TH/MM3 CBC Comment DIFF FINAL Differential Comment Blood Urea Nitrogen 41 MG/DL Creatinine 2.11 MG/DL Random Glucose 103 MG/DL Total Protein 7.7 GM/DL Albumin 2.4 GM/DL Calcium Level 8.1 MG/DL Magnesium Level 1.9 MG/DL Alkaline Phosphatase 134 U/L Aspartate Amino Transf (AST/SGOT) 133 U/L Alanine Aminotransferase (ALT/SGPT) 61 U/L Total Bilirubin 0.5 MG/DL Sodium Level 139 MEQ/L Potassium Level 5.4 MEQ/L Chloride Level 110 MEQ/L Carbon Dioxide Level 17.3 MEQ/L Anion Gap 12 MEQ/L Estimat Glomerular Filtration Rate 25 ML/MIN Lactic Acid Level 1.9 mmol/L Total Creatine Kinase 546 U/L Creatine Kinase MB 3.3 NG/ML Creatine Kinase MB % 0.6 % Troponin I 0.36 NG/ML 0.19 NG/ML C-Reactive Protein 7.90 MG/DL B-Type Natriuretic Peptide 207 PG/ML Lipase 99 U/L Prothrombin Time 10.6 SEC Prothromb Time International Ratio 1.0 RATIO Activated Partial Thromboplast Time 21.0 SEC Salicylates Level 3.3 MG/DL Acetaminophen Level LESS THAN 2.0 MCG/ML Ethyl Alcohol Level LESS THAN 3 MG/DL Date/Time Source Procedure Growth Status 03/20/18 00:05 Blood Peripheral Aerobic Blood Culture Pending Received 03/20/18 00:05 Blood Peripheral Anaerobic Blood Culture Pending Received Mental Status Examination Appearance: Appropriate Consciousness: Alert Orientation: x4 Motor Activity: Normal gait Speech: Unremarkable Language: Adequate Fund of Knowledge: Adequate Attention and Concentration: Adequate Memory: Unremarkable Mood: Appropriate Affect: Appropriate Thought Process & Associations: Intact Thought Content: Appropriate Hallucination Type: None Delusion Type: None Suicidal Ideation: No Suicidal Plan: No Suicidal Intention: No Homicidal Ideation: No Homicidal Plan: No Homicidal Intention: No Insight: Adequate Judgment: Adequate Assessment & Plan Problem List: (1) Adjustment disorder with depressed mood ICD Codes: F43.21 - Adjustment disorder with depressed mood Assessment & Plan: On psychiatric evaluation today the patient does not present any acute, concerning or significant symptomatology of depression, anxiety, tata or psychosis. The patient denies suicidal and homicidal ideation. The patient denies visual and auditory hallucinations. She does present with some irritability, opposition, resistant to the psychiatric interview, but she was redirectable. The patient denies that recent overdose with benzodiazepines and alcohol was with suicidal intentions. It seems to me that this recent overdose was the result of maladaptive and excessive use of alcohol and benzodiazepines, but the patient seems to be in precontemplation and have a very poor insight of this behavior. She does not meet criteria for involuntary psychiatric admission. 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 Brief supportive psychotherapy provided. Continue CIWA. Patient has full decision-making capacity to participate in treatment and discharge plan. Consult appreciated. Assessment & Plan Estimated LOS: days Zay Carrasco MD March 20, 2018 12:20
--- NOTE | 2018-03-20 16:43 | EKG ---
Date Performed: 03/20/2018 Time Performed: 00:01:04 PTAGE: 52 years EKG: Sinus rhythm ST DEVIATION AND MARKED T-WAVE ABNORMALITY, CONSIDER ANTEROLATERAL ISCHEMIA ST DEVIATION AND MODERAT E T-WAVE ABNORMALITY, CONSIDER INFERIOR ISCHEMIA ABNORMAL ECG when compared to prior ekg, there is a significant change with evidence of left ventricular hypertrophy and strain. cannot exclude hypertrop hic cardiomyopathy. PREVIOUS TRACING : 01/14/2010 19.58 DOCTOR: Tali Leonard Interpretating Date/Time 03/20/2018 16:41:33
--- NOTE | 2018-03-20 16:44 | EKG ---
Date Performed: 03/20/2018 Time Performed: 11:18:43 PTAGE: 52 years EKG: Sinus rhythm ST DEVIATION AND MARKED T-WAVE ABNORMALITY, CONSIDER ANTEROLATERAL ISCHEMIA ST DEVIATION AND MODERAT E T-WAVE ABNORMALITY, CONSIDER INFERIOR ISCHEMIA ABNORMAL ECG Since the PREVIOUS TRACING , no significant change noted cannot exclude hpertrophic cardiomyopathy. significant ischemic changes are still noted. PREVIOUS TRACIN03/20/2018 00.01 DOCTOR: Tali Leonard Interpretating Date/Time 03/20/2018 16:42:13
== END 2018-03-20 14:50 | disposition left against medical advice (07) | DRG 881 ==
LOC: NEPE 22:41 → NEDA 03-20 01:28 → N06B 03-20 04:10
PROVIDERS: ADMIT Hospitalist; ATTEND Hospitalist
DX: F43.21 Adjustment disorder with depressed mood (principal); N17.9 Acute kidney failure, unspecified; M62.82 Rhabdomyolysis; E87.5 Hyperkalemia; Z78.1 Physical restraint status; B37.9 Candidiasis, unspecified; I10 Essential (primary) hypertension; F17.210 Nicotine dependence, cigarettes, uncomplicated; K52.9 Noninfective gastroenteritis and colitis, unspecified; I25.2 Old myocardial infarction; E86.0 Dehydration; J44.9 Chronic obstructive pulmonary disease, unspecified; F41.9 Anxiety disorder, unspecified; Z21 Asymptomatic human immunodeficiency virus [HIV] infection status; Z91.5 Personal history of self-harm; Z90.710 Acquired absence of both cervix and uterus; Z98.82 Breast implant status; Z90.49 Acquired absence of other specified parts of digestive tract; Z86.73 Personal history of transient ischemic attack (TIA), and cerebral infarction without residual deficits; Z72.89 Other problems related to lifestyle
CPT/HCPCS: 70450; 71045; 80053; 80307; 82550; 82552; 83605; 83690; 83735; 83880; 84484; 84703; 85025; 85610; 85730; 86140; 87040; 93005; 94664; J1650; J1815; J1956; J3475; J7030; J7040; J7611